=== PATIENT | male | born 1955 | race American Indian/Alaskan Native ===

== ENCOUNTER 2021-04-27 15:12 | Emergency (ER) | payer MEDICARE, MEDICAID ==
[2021-04-27] MEDS ORDERED: METOCLOPRAMIDE 10 MG/2 ML INJ IV ONE (16:32)
[2021-04-27] MEDS ORDERED: SODIUM CHLORIDE 0.9% 1000 ML 1,000 ML IV ONE (16:32)
[2021-04-27] MEDS ORDERED: diphenhydrAMINE 50 MG/ML VIAL IV ONE (16:32)
--- NOTE | 2021-04-27 16:34 | Event Note ---
ED Screening Note ED Screening Note: Patient presents with sudden onset of nausea, vomiting, and abdominal pain today History of diabetes States has had similar symptoms once before in the past and was diagnosed with gastroparesis, however he has not had symptoms since Denies hematemesis/coffee-ground emesis or diarrhea Patient appears very uncomfortable No history is of abdominal surgeries This initial assessment/diagnostic orders/clinical plan/treatment(s) is/are subject to change based on patients health status, clinical progression and re- assessment by fellow clinical providers in the ED. Further treatment and workup at subsequent clinical providers discretion. Patient/guardian urged not to elope from the ED as their condition may be serious if not clinically assessed and managed. Initial orders include: Labs Meds CT abdomen
[2021-04-27] MEDS ORDERED: MORPHINE 4 MG/1 ML INJ IV ONE (19:05)
[2021-04-27] MEDS ORDERED: ONDANSETRON 4 MG/2 ML INJ IV ONE (19:05)
--- NOTE | 2021-04-27 19:09 | Emergency Department Report ---
ED Abdominal Pain HPI - General Chief Complaint: Abdominal Pain Stated Complaint: NAUSEA Time Seen by Provider: 04/27/21 17:36 Source: patient Mode of arrival: Ambulatory Limitations: No Limitations - History of Present Illness Initial Comments: Patient is 65 years old male with history of hypertension, diabetes and history of gastroparesis. Patient presented to the ER complaining of diffuse abdominal pain, distention and dull aching pain with no radiation. Patient also complaining of nausea and vomiting. Patient stated he is unable to keep anyth ing down. Patient denied any fever but stated that he has some chills. Patient denies any chest pain or shortness of breath. MD Complaint: abdominal pain -: days(s) (3) Location: diffuse Radiation: none Migration to: no migration Severity scale (0 -10): 5 Quality: fullness, dull Consistency: constant Improves With: nothing Worsens With: nothing Associated Symptoms: nausea, vomiting - Related Data Allergies Allergy/AdvReac Type Severity Reaction Status Date / Time No Known Allergies Allergy Unverified 04/27/21 15:46 ED Review of Systems ROS: Stated complaint: NAUSEA Other details as noted in HPI Comment: All other systems reviewed and negative Constitutional: denies: chills, fever Respiratory: denies: cough, shortness of breath, SOB with exertion Cardiovascular: denies: chest pain, palpitations, dyspnea on exertion Gastrointestinal: abdominal pain, nausea, vomiting Musculoskeletal: denies: back pain Neurological: denies: headache, weakness, numbness, paresthesias, confusion ED Physical Exam - General Limitations: No Limitations General appearance: alert, in no apparent distress - Head Head exam: Present: atraumatic, normocephalic, normal inspection - Eye Eye exam: Present: normal appearance - ENT ENT exam: Present: mucous membranes dry - Neck Neck exam: Present: normal inspection, full ROM. Absent: tenderness, meningismus - Respiratory Respiratory exam: Present: normal lung sounds bilaterally - Cardiovascular Cardiovascular Exam: Present: tachycardia - GI/Abdominal GI/Abdominal exam: Present: soft, normal bowel sounds. Absent: distended, tenderness, guarding, rebound, rigid, organomegaly, mass, bruit, pulsatile mass, hernia - Extremities Exam Extremities exam: Present: normal inspection, full ROM, normal capillary refill. Absent: tenderness - Back Exam Back exam: Present: normal inspection, full ROM. Absent: CVA tenderness (R), CVA tenderness (L) - Neurological Exam Neurological exam: Present: alert, oriented X3, CN II-XII intact, normal gait, reflexes normal. Absent: motor sensory deficit - Psychiatric Psychiatric exam: Present: normal mood - Skin Skin exam: Present: warm, intact, normal color ED Course Vital Signs 04/27/21 04/27/21 04/27/21 15:46 18:50 18:51 Temperature 98.3 F 97.9 F Pulse Rate 116 H 104 H Respiratory 18 15 15 Rate Blood Pressure 148/98 126/82 [Right] O2 Sat by Pulse 98 95 95 Oximetry 04/27/21 04/27/21 04/27/21 19:16 19:46 20:02 Temperature 98.7 F Pulse Rate 102 H Respiratory 15 18 18 Rate Blood Pressure 172/91 [Right] O2 Sat by Pulse 98 Oximetry ED Medical Decision Making - Lab Data Result diagrams: 04/27/21 21:36 04/27/21 21:36 - Radiology Data Radiology results: report reviewed - Medical Decision Making Patient is 65 years old male with history of hypertension, diabetes and history of gastroparesis. Patient presented to the ER complaining of diffuse abdominal pain, distention and dull aching pain with no radiation. Patient also complaining of nausea and vomiting. Patient stated he is unable to keep anything down. Patient denied any fever but stated that he has some chills. Patient denies any chest pain or shortness of breath. Patient received morphine and Zofran. Patient stated that his feeling much better. Labs reviewed and is unremarkable. CT abdomen and pelvis is negative for acute finding except for possible subacute L2 fracture. Patient stated that he did have a fall approximately 4 weeks ago but he is following with an orthopedics now. Patient given prescription for tramadol and Zofran and advised to follow-up with his primary doctor in the next 2 to 3 days and to return to the ER if he develop any new Critical care attestation.: If time is entered above; I have spent that time in minutes in the direct care of this critically ill patient, excluding procedure time. ED Disposition Clinical Impression: Acute abdominal pain, Acute nausea with nonbilious vomiting Disposition: HOME / SELF CARE / HOMELESS Is pt being admited?: No Condition: Stable Instructions: Nausea and Vomiting, Adult, [id number], Abdominal Pain, Adult Referrals: PRIMARY CARE, [Primary Care Provider] - 3-5 Days
[2021-04-27 21:49] LABS: Basophils # (Auto) 0.1 K/mm3 (0.0-0.1); Basophils % (Auto) 1.2 % (0.0-1.8); Eosinophils % (Auto) 0.2 % (0.0-4.3); Hematocrit 38.7 % (35.5-45.6); Hemoglobin 13.3 gm/dl (11.8-15.2); Lymphocytes # (Auto) 1.2 K/mm3 (1.2-5.4); Lymphocytes % (Auto) 14.8 % (13.4-35.0); Mean Corpuscular HGB Conc 34 % (32-34); Mean Corpuscular Volume 81 fl (84-94); Monocytes # (Auto) 0.7 K/mm3 (0.0-0.8); Monocytes % (Auto) 8.6 % (0.0-7.3); Platelet Count 288 K/mm3 (140-440); Red Blood Count 4.79 M/mm3 (3.65-5.03); Red Cell Distribution Width 13.3 % (13.2-15.2)
[2021-04-27 22:08] LABS: Calcium 8.8 mg/dL (8.4-10.2)
--- NOTE | 2021-04-27 23:43 | Cat Scan Report ---
CT abdomen pelvis w con INDICATION / CLINICAL INFORMATION: acute mid/lower abdominal pain and vomiting. TECHNIQUE: Axial CT images were obtained through the abdomen and pelvis after IV contrast. All CT sc ans at this location are performed using CT dose reduction for ALARA by means of automated exposure c ontrol. COMPARISON: None available. FINDINGS: LOWER CHEST: There is elevation of the right hemidiaphragm with right basilar volume loss. No acute a irspace consolidation in the lung bases. LIVER: No significant abnormality GALLBLADDER/BILIARY TREE: No significant abnormality PANCREAS: No significant abnormality SPLEEN: No significant abnormality ADRENALS: 2.1 cm nodule along the lateral limb of the left adrenal gland. This is indeterminate. Righ t adrenal gland is unremarkable. KIDNEYS / URETER: No significant abnormality URINARY BLADDER: No significant abnormality REPRODUCTIVE ORGANS: No significant abnormality STOMACH / BOWEL: Small bowel is normal in caliber. Colonic diverticulosis without evidence of diverti culitis. The appendix is normal in caliber. LYMPH NODES: No significant adenopathy. VASCULATURE: Moderate atherosclerotic calcification without acute abnormality. OTHER: No free air, free fluid, or focal fluid collection is identified. SKELETAL SYSTEM: There are transitional features of the lumbosacral junction. For the purposes of thi s report, L5-S1 is defined as axial image 63 of series 4. There is moderate compression fracture of t he presumed L2 vertebral body with vacuum cleft extending into the vertebral body, compatible with os teonecrosis. 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 This also suggests fracture is subac jeffery to chronic in age. There is approximately 50% vertebral body height loss. Minimal retropulsion of the posterior vertebral body without significant central canal narrowing. No other acute abnormality . IMPRESSION: 1. L2 compression fracture with 50% vertebral body height loss with findings of osteonecrosis (Kummel l disease). Findings suggest fracture is at least subacute to chronic in age. 2. Otherwise, no evidence of acute process. 3. 2.1 cm left adrenal nodule is indeterminate. Recommend nonemergent follow-up CT with adrenal mass protocol. 4. Other chronic and incidental findings as above. Signer Name: Rudolph Winston MD Signed: 04/27/2021 11:39 PM Workstation Name: [id number]
[2021-04-28 02:04] VITALS: BP 164/89
== END 2021-04-28 01:05 | disposition home or self-care (01) ==
LOC: ED 15:12
DX: R11.2 Nausea with vomiting, unspecified (principal); R10.9 Unspecified abdominal pain; E11.9 Type 2 diabetes mellitus without complications; I10 Essential (primary) hypertension
CPT/HCPCS: 36415; 74177; 80048; 82962; 84484; 85025; 96361; 96374; 96375; 99284; J1200; J2270; J2405; J2765; J7030; Q9967; Q0162